=== PATIENT | female | born 1970 | race Caucasian/White ===

== ENCOUNTER 2023-01-22 16:54 | Outpatient (CLI) | payer MEDICAID, SELFPAY ==
--- NOTE | 2023-01-22 17:06 | XR_ITS ---
WS: [id number] XR thoracic spine 3V* [id number] REASON FOR EXAM: RADICULOPATHY FINDINGS: 7 to 8 degrees of mid thoracic scoliosis convex right. No significant kyphosis. No significant vertebral body abnormality. Mild disc space narrowing with small anterior osteophytes in the midthoracic spine. XR/XR thoracic spine 3V* [id number] IMPRESSION: Mild scoliosis and degenerative spondylosis as above.
== END 2023-01-22 16:55 | disposition home or self-care (01) ==
PROVIDERS: PCP Nurse Practitioner; Visit Provider Nurse Practitioner
DX: M47.814 Spondylosis without myelopathy or radiculopathy, thoracic region (principal); M41.84 Other forms of scoliosis, thoracic region; M25.78 Osteophyte, vertebrae
CPT/HCPCS: 72072

== ENCOUNTER 2023-02-22 08:35 | Outpatient (CLI) | payer BC, MEDICAID, SELFPAY ==
--- NOTE | 2023-02-22 08:50 | MR_ITS ---
WS: [id number] MRI THORACIC SPINE WITHOUT CONTRAST TECHNIQUE: Sagittal T1, T2 and STIR imaging. Axial T2 imaging. Noncontrast imaging obtained. CLINICAL INFORMATION: RADICULOPATHY OF ARM COMPARISON: None. FINDINGS: Mild thoracic curve. Mild thoracic kyphosis. Incidental benign hemangiomas T12 and L1. Tiny shallow central protrusion C5-C6 with slight contact of the thoracic cord. Tiny shallow LEFT per icentral protrusion T7-T8 slight indentation the LEFT ventral thoracic cord. Mild RIGHT T9-T10 bony f oraminal narrowing. Mild/moderate facet arthropathy lower thoracic spine. Central and LEFT pericentral disc osteophyte protrusion cervical spine C6-C7 with mild central canal stenosis and slight indentation ventral cervical cord. Recommend further evaluation with cervical spi ne MRI. Normal adrenal glands. MR/MR thoracic spin wo con* [id number] IMPRESSION: 1. Mild thoracic curve. Mild thoracic kyphosis. No acute compression fractures . 2. Shallow LEFT pericentral protrusion T7-T8 with slight indentation on the th oracic cord. Spinal canal is patent. 3. Tiny central protrusion T5-T6. 4. Mild RIGHT T9-T10 bony foraminal narrowing. 5. Mild to moderate facet arthropathy lower thoracic spine. 6. Central and LEFT pericentral disc osteophyte protrusion cervical spine C6-C 7 with mild central canal stenosis and slight indentation ventral cervical cord . Recommend further evaluation with cervical spine MRI.
== END 2023-02-22 08:36 | disposition home or self-care (01) ==
PROVIDERS: PCP Nurse Practitioner; Visit Provider Nurse Practitioner
DX: M54.10 Radiculopathy, site unspecified (principal); M51.24 Other intervertebral disc displacement, thoracic region; M50.223 Other cervical disc displacement at C6-C7 level
CPT/HCPCS: 72146